=== PATIENT | female | born 1960 | race Caucasian/White ===

== ENCOUNTER 2017-07-12 00:28 | Inpatient (IN) | payer BC, OTHER ==
[2017-07-12] VITALS (7 sets, daily range): BP systolic 131–139; BP diastolic 75–85
[~2017-07-12] VITALS: Ht 167.6 cm; Wt 59.0 kg
[2017-07-12] MEDS ORDERED: MIRALAX 17 GM POWD.PACK PO PRN (01:15)
[2017-07-12] MEDS ORDERED: LOPERAMIDE HCL 2 MG CAPSULE PO PRN ×2 (01:15)
[2017-07-12] MEDS ORDERED: MAGNESIUM HYDROXIDE 30 ML LIQUID UDC PO PRN (01:15)
[2017-07-12] MEDS ORDERED: diphenhydrAMINE 50 MG CAPSULE PO PRN (01:15)
[2017-07-12] MEDS ORDERED: ONDANSETRON ODT 4 MG TAB.RAPDIS SL PRN (01:15)
[2017-07-12] MEDS ORDERED: LORAZEPAM 2 MG/1 ML VIAL IM PRN (01:15)
[2017-07-12] MEDS ORDERED: DICYCLOMINE HCL 20 MG TABLET PO PRN (01:15)
[2017-07-12] MEDS ORDERED: MAG HYDROX/AL HYDROX/SIMETH 30 ML LIQUID UDC PO PRN (01:15)
[2017-07-12] MEDS ORDERED: CLONIDINE HCL 0.1 MG TABLET PO PRN (01:15)
[2017-07-12] MEDS ORDERED: THIAMINE HCL 200 MG/2 ML VIAL IM ONE (01:15)
[2017-07-12] MEDS ORDERED: ONDANSETRON 4 MG/2 ML VIAL IM PRN (01:15)
[2017-07-12] MEDS ORDERED: HYDROXYZINE PAMOATE 25 MG CAPSULE PO PRN (01:15)
[2017-07-12] MEDS ORDERED: ACETAMINOPHEN 325 MG TABLET PO PRN (01:15)
[2017-07-12] MEDS ORDERED: LORAZEPAM 1 MG TABLET PO PRN (01:15)
--- NOTE | 2017-07-12 01:30 | NUR ---
Pre-admission assessment Patient is a 57-year old, female, seen at intake, AAOx4, no SOB and with flushed skin, anxiety and gross tremors noted at this time. Discussed with patient admission policies of the unit. Patient is coherent and able to respond to questions appropriately. Patient reported that she is from [place], [place]. Pt is ambulatory with steady gait. Pt reports that she drinks Tequila daily and takes Clonazepam as prescribed. Vital signs taken and as follows: YT=988/85, P=112, O2 sat on RA=96%, RR=20, T=98.4. Pt verbalized instructions and teachings regarding disposal of narcotic and other controlled home meds, unit protocols such as taking of vital signs Q4H and handling and disposal of contraband.
--- NOTE | 2017-07-12 01:55 | NUR ---
Admission Note Patient is a 57-year-old, female, arrived to the floor at 0145 to be admitted for medically supervised withdrawal from Alcohol (Tequila) and Benzodiazepines (Klonopin). The patient is currently experiencing withdrawal symptoms, as follows: flushed skin, increasing anxiety, emotional volatility and gross tremors. Pt appears disheveled, has a flat affect and with depressed mood. Pt is on a wheelchair due to unsteady gait related to withdrawal symptoms. Pt is AAOx4, and verbalized "I want to quit drinking. I want my life back and be at peace with myself." The patient states that withdrawal symptoms include tremors, agitation, anxiety, sweating, hot flushes, emotional volatility, goosebumps, nausea, vomiting and diarrhea. Patient denies a history of withdrawal-induced seizures. Patient verbalized that before she relapsed and started drinking again, she was sober for 1 month. Patient states current substance use as follows: 1. Tequila--Patient stated that she first had alcohol at age 15. For the past 1 month, patient verbalized drinking 750 ml of Tequila daily. Last drink was on 07/10/2017 at 2200, 750 ml of Tequila. 2.Clonazepam--Patient stated that she is taking 0.5 mg PO almost daily. Per patient, this medication is prescribed by her MD and only takes this medication as prescribed: 0.5 mg PO daily PRN Anxiety. She stated that she is seeking treatment today because "I was brought to the ER last 07/10/2017 because I did not feel good. I felt like my world was spinning and thought that I was gonna ." In addition, patient stated: "I realized that I am almost 60 and that if I don't change course, my life would be over before I know it." Her longest sobriety was 7 years, between 1995 to 2002. Patient admittedly said: "I want to have a job, a normal life and I want to make it right. My has been suffering for so long because of my alcohol problem. Sometimes, I doubt myself if I can do this. But I want to try and succeed this time." Patient verbalized that she is interested in going to a treatment center after her stay at [facility]. Patient's main support system is her . Vital signs are taken and as follows: BP: 139/82, HR: 105, RR: 18, SpO2: 96%, Temp: 98.1 and with no c/o pain. Pulse is palpable and regular. Respirations are even and unlabored. Lung sounds clear. Bowel sounds active x4 quadrants. Last bowel movement was in the morning of 07/11/2017. Per patient, her bowel movement is almost daily. Noted with non-pitting edema on the left foot, with no pain upon palpation. Pt follows a regular diet at home. NKA. Full Code. Height is 5'6", 130 lbs. She smokes approximately about a pack of [place] Smooth daily. Per patient, she has no primary care physician and Psychiatrist is Dr. Esqueda at [place], [place]. Pt states that her medical history are as follows: Anxiety, Depression and Left Arm and Left Hip Surgery due to fracture from a fall. Educated patient about plan of care including detox, group therapy, individual therapy, and discharge planning. Encouraged patient to be open and honest and verbalized support for patient in her recovery. Upon admission to the floor, CIWA=15. Will continue to monitor. Addendum: 07/12/17 at 0634 by REANNA FRASER RN Additional information: Patient brought home meds and they were reconciled at [employer].
[2017-07-12] MEDS ORDERED: LORAZEPAM 1 MG TABLET PO ONE (02:00)
[2017-07-12] MEDS ORDERED: GABA600T2 PO (02:13)
[2017-07-12] MEDS ORDERED: CLON0.5T4 PO (02:13)
[2017-07-12] MEDS ORDERED: PARO30TA4 PO (02:13)
[2017-07-12] MEDS ORDERED: QUET50TA PO (02:13)
[2017-07-12] MEDS ORDERED: NALT50TA PO (02:13)
[2017-07-12] MEDS ORDERED: HYDR50CA PO (02:13)
[2017-07-12 02:28] LABS: BASOPHILS # (AUTO) 0.1 K/uL (0.0-8.0); BASOPHILS % (AUTO) 1.3 % (0.0-2.0); EOSINOPHILS # (AUTO) 0.1 K/uL (0.0-0.7); EOSINOPHILS % (AUTO) 1.3 % (0.0-7.0); HEMATOCRIT 34.8 % (31.2-41.9); HEMOGLOBIN 12.1 g/dL (10.9-14.3); LYMPHOCYTES # (AUTO) 2.5 K/uL (20.0-40.0); MEAN CORPUSCULAR HEMOGLOBIN 38.7 uug (24.7-32.8); MEAN CORPUSCULAR HGB CONC 35 g/dL (32.3-35.6); MEAN CORPUSCULAR VOLUME 111.7 fL (75.5-95.3); MONOCYTES # (AUTO) 0.5 K/uL (2.0-10.0); MONOCYTES % (AUTO) 6.8 % (0.0-11.0); NEUTROPHILS # (AUTO) 3.8 K/uL (1.8-8.9); NEUTROPHILS % (AUTO) 54.6 % (38.5-71.5); PLATELET COUNT (AUTO) 124 K/uL (179-408); RED BLOOD CELL COUNT(AUTO) 3.11 MIL/uL (3.63-4.92)
[2017-07-12 02:35] LABS: ALANINE AMINOTRANSFERASE 50 U/L (14-59); ALKALINE PHOSPHATASE 115 U/L (50-136); AMYLASE 60 U/L (25-115); ASPARTATE AMINOTRANSFERASE 50 U/L (15-37); BILIRUBIN,TOTAL 0.8 mg/dL (0.2-1.0); CARBON DIOXIDE 37 mmol/L (21-32); CREATININE 0.5 mg/dL (0.6-1.3); GLUCOSE 78 mg/dL (74-106); LIPASE 262 U/L (73-393); MAGNESIUM 1.4 mg/dL (1.8-2.4); TOTAL PROTEIN, SERUM 7.3 g/dL (6.4-8.2); UREA NITROGEN, BLOOD 8 mg/dL (7-18)
[2017-07-12 02:39] LABS: ETHANOL < 3 MG/DL (0-0)
[2017-07-12 02:40] LABS: *AMPHETAMINE, URINE NEGATIVE (NEGATIVE); *BARBITURATE, URINE NEGATIVE (NEGATIVE); *CANNABINOID, URINE NEGATIVE (NEGATIVE); *COCCAINE, URINE NEGATIVE (NEGATIVE); *OPIATE, URINE NEGATIVE (NEGATIVE); *PHENCYCLIDINE SCREEN,URINE NEGATIVE (NEGATIVE)
[2017-07-12 02:45] LABS: CHLORIDE 95 mmol/L (98-107)
[2017-07-12] MEDS ORDERED: QUETIAPINE FUMARATE 25 MG TABLET PO ONE (02:45)
[2017-07-12 02:46] LABS: THYROID STIMULATING HORMONE 4.792 mIU/mL (0.358-3.740)
[2017-07-12 03:31] LABS: POTASSIUM 2.7 mmol/L (3.5-5.1)
[2017-07-12] MEDS ORDERED: POTASSIUM CHLORIDE 20 MEQ TAB.PRT.SR PO ONE ×2 (03:45→15:00)
[2017-07-12] MEDS ORDERED: MAGNESIUM OXIDE 400 MG TABLET PO ONE ×2 (04:15→15:00)
--- NOTE | 2017-07-12 07:20 | NUR ---
End of Shift Patient asleep on bed but arousable, AAOx4 and noted to be increasingly anxious. With flushed skin and tremors noted. Patient appears depressed, melancholic and isolative. Patient also noted to be disheveled. Patient has difficulty in concentrating, lanie in conversations lasting over 3 minutes. Patient verbalized: "I want to get some more rest. I feel really tired." No c/o pain at this time. Fall, universal, seizure and safety prec in place. Call light within reach. Latest CIWA=9, slept for 2 hours. Endorsed to AM shift nurse for continuity of care.
--- NOTE | 2017-07-12 07:21 | NUR ---
Start of Shift Single Fold Machine Operator received report on 57 Year old female admitted to [facility] on 07/12/17, early am, for medical management of ETOH and Benzodiazepine withdrawals. Pt endorses NKA, Full code and regular diet. Pt endorses no PMH and no history of seizures. PPH of anxiety and depression. Pt currently on 1:1 staffing for safety d/t unsteady gait. Pt with no PRN medication on NOC, per report. Pt has not been started on taper with pt receiving OT doses of Ativan and Seroquel. Last CIWA 9, per NOC report. Single Fold Machine Operator encounters pt in room resting with eyes closed with rise and f all of chest noted. Even and unlabored respirations. Bed in low position with wheels locked and side rails up x2. Will continue to monitor, support and encourage according to plan of care.
[2017-07-12] MEDS: FOLIC ACID 1 MG TABLET PO SCH (09:44)
[2017-07-12] MEDS: THIAMINE HCL 100 MG TABLET PO SCH (09:44)
[2017-07-12] MEDS: MULTIVITAMINS,THERAPEUTIC TABLET PO SCH (09:44)
[2017-07-12] MEDS: LORAZEPAM 1 MG TABLET PO PRN (09:44)
--- NOTE | 2017-07-12 09:44 | NUR ---
PRN Ativan Pt's CIWA 10. Mud Grinder administered medication to order with pt tolerating well. Will continue to monitor, support and encourage according to plan of care
[2017-07-12] MEDS ORDERED: Medication Not On Formulary EA (Quetiapine Fumarate (Seroquel) 50 MG) PO PRN (09:45)
--- NOTE | 2017-07-12 10:44 | NUR ---
PRN Re-Assessment Entry Rep resting in bed with eyes closed, rise and fall of chest noted, with even and unlabored respirations. Will continue to monitor, support and encourage according to plan of care.
[2017-07-12] MEDS: LORAZEPAM 1 MG TABLET PO SCH ×2 (15:44→20:25)
--- NOTE | 2017-07-12 16:50 | NUR ---
Desaturation Pt's O2 levels drop to 86% while pt sleeps. Chuck Boner notified MD and received order for NC O2 and titrate to keep O2 >95%. NC provided and placed on pt. Chuck Boner educated pt on need for oxygen. Will continue to monitor, support and encourage according to plan of care.
--- NOTE | 2017-07-12 16:55 | NUR ---
DVT Prophylaxes Flight Coordinator educated pt on need for Pneumatic Pump for DVT prevention and proper application. Pump and pneumatic stockings in room. Will continue to monitor, support and encourage according to plan of care.
--- NOTE | 2017-07-12 19:02 | NUR ---
End of Shift Playground Monitor provided report on 57 Year old female admitted to [facility] on 07/12/17 for medical management of ETOH and Benzodiazepine withdrawals. Pt endorses NKA, Full code and regular diet. Pt endorses no PMH and no history of seizures. PPH of anxiety and depression. Pt currently on 1:1 staffing for safety d/t unsteady gait, pending PT evaluation. Pt administered Ativan(withdrawal symptoms) for a CIWA of 10. Pt started on Ativan taper today, tolerating well with last CIWA 10 recorded at 1630. Pt has been resting all shift, in her room with 1:1 attendant. Pt is tremulous, anxious and restless. Cooperative and polite. A/O x4 and able to make needs known. Bed in low position with wheels locked and side rails up x2.
--- NOTE | 2017-07-12 19:45 | NUR ---
Start of Shift Note Received a 57 y/o female px, admitted for medically supervised withdrawal from ETOH and Benzodiazepine. Px is placed on 4 day Ativan taper starts today, 07/12/2017. Last CIWA reported is 10 by AM shift nurse. Px was placed on 1 to 1 for unsteady gait and safety. During the rounds at 1945, px is awake on bed in fowlers position. VS taken. Px is tachycardic with regular pulse. O2sat is saturating in 90% to 95% in RA. Px may use O2 inhalation at 2 LPM via NC as needed. Px stated "can I have something for heartburn?" Px's anxiety is 7/10. Bilateral hand tremors noted. Px requested for her Seroquel later before she sleeps. Px is placed on IPC for bilateral legs. Bed on lowest position, side rails up 2x, and call light within reach. We'll continue to monitor.
[2017-07-12] MEDS: GABAPENTIN 300 MG CAPSULE PO SCH (20:25)
[2017-07-12] MEDS: PAROXETINE HCL 20 MG TABLET PO SCH (20:25)
--- NOTE | 2017-07-12 20:46 | NUR ---
PRN Maalox Px was given Maalox 30 ml as PRN medication for heart burn. We'll continue to monitor.
[2017-07-12] MEDS: QUETIAPINE FUMARATE 25 MG TABLET PO PRN (21:44)
--- NOTE | 2017-07-12 21:44 | NUR ---
PRN Seroquel Px received Seroquel 25 mg/tab, 2 tabs PO as PRN medication for insomnia. We'll continue to monitor.
[2017-07-13] VITALS: BP 122/71
--- NOTE | 2017-07-13 04:00 | NUR ---
CIWA deferred CIWA deferred at 0000 and 0400 due to the px is asleep, to assess if the px is awake per doctor's order. We'll continue to monitor.
--- NOTE | 2017-07-13 07:12 | NUR ---
End of Shift Note During the shift at 2045, Maalox 30 ml given PO as PRN medication for heartburn and it was effective. At 2143, px received Seroquel 50 mg PO as PRN medication for insomnia. It was effective. Px slept for total of 8 hours. Px's oral intake is 350 ml, voided 2x, No BM. Last CIWA 9. At 0630, px is asleep on bed in left side lying position. Px is on O2 inhalation at 2 LPM via NC. O2sat= 96%. Bed on lowest position, side rails up 2x, and call light within reach. We'll continue to monitor. Px endorsed to AM shift nurse.
--- NOTE | 2017-07-13 07:30 | NUR ---
Start of Shift Building Construction Foreman received report on 57 Year old female admitted to [facility] on 07/12/17, for medical management of ETOH and Benzodiazepine withdrawals. Pt endorses NKA, Full code and regular diet. Pt endorses no PMH and no history of seizures. PPH of anxiety and depression. Pt currently on 1:1 staffing for safety d/t unsteady gait, with PT Evaluation ordered. Pt administered Maalox(upset stomach) and Seroquel(insomnia) PRN, per report. Pt has started an Ativan taper with last CIWA 9, per NOC report. Building Construction Foreman encounters pt in room resting with eyes closed with rise and fall of chest noted. Even and unlabored respirations. Bed in low position with wheels locked and side rails up x2. Will continue to monitor, support and encourage according to plan of care.
[2017-07-13 08:07] LABS: HEPATITIS B SURFACE AG Negative (Negative)
[2017-07-13 08:30] VITALS: BP 132/78
[2017-07-13] MEDS ORDERED: TUBERCULIN,PURIF.PROT.DERIV. 5 TU/0.1 ML TEST ID ONE (09:00)
[2017-07-13] MEDS ORDERED: LORAZEPAM 1 MG TABLET PO SCH ×2 (09:00→21:00)
[2017-07-13] MEDS ORDERED: PAROXETINE HCL 20 MG TABLET PO SCH (09:00)
[2017-07-13] MEDS: FOLIC ACID 1 MG TABLET PO SCH (09:05)
[2017-07-13] MEDS: THIAMINE HCL 100 MG TABLET PO SCH (09:06)
[2017-07-13] MEDS: GABAPENTIN 300 MG CAPSULE PO SCH ×2 (09:06→20:30)
[2017-07-13] MEDS: MULTIVITAMINS,THERAPEUTIC TABLET PO SCH (09:06)
[2017-07-13 12:30] VITALS: BP 141/82
[2017-07-13] MEDS: LORAZEPAM 1 MG TABLET PO SCH ×2 (13:26→17:45)
[2017-07-13 13:47] LABS: BASOPHILS % (AUTO) 0.9 % (0.0-2.0); EOSINOPHILS # (AUTO) 0.1 K/uL (0.0-0.7); HEMATOCRIT 36.1 % (31.2-41.9); HEMOGLOBIN 12.4 g/dL (10.9-14.3); LYMPHOCYTES # (AUTO) 1.6 K/uL (20.0-40.0); LYMPHOCYTES % (AUTO) 37.8 % (20.5-51.5); MEAN CORPUSCULAR HEMOGLOBIN 38.7 uug (24.7-32.8); MEAN CORPUSCULAR HGB CONC 34 g/dL (32.3-35.6); MEAN CORPUSCULAR VOLUME 112.4 fL (75.5-95.3); MONOCYTES # (AUTO) 0.3 K/uL (2.0-10.0); MONOCYTES % (AUTO) 7.8 % (0.0-11.0); NEUTROPHILS # (AUTO) 2.2 K/uL (1.8-8.9); NEUTROPHILS % (AUTO) 51.5 % (38.5-71.5); PLATELET COUNT (AUTO) 120 K/uL (179-408); RED BLOOD CELL COUNT(AUTO) 3.21 MIL/uL (3.63-4.92); WHITE BLOOD COUNT (AUTO) 4.3 K/uL (3.8-11.8)
[2017-07-13 14:13] LABS: BILIRUBIN,DIRECT 0.2 mg/dL (0.0-0.2); BILIRUBIN,TOTAL 0.5 mg/dL (0.2-1.0); CREATININE 0.6 mg/dL (0.6-1.3); MAGNESIUM 1.8 mg/dL (1.8-2.4); PHOSPHOROUS 4.4 mg/dL (2.5-4.9); POTASSIUM 3.3 mmol/L (3.5-5.1); TOTAL PROTEIN, SERUM 6.8 g/dL (6.4-8.2)
--- NOTE | 2017-07-13 15:35 | NUR ---
Transfer of Care Child Psychometrist endorsed care of 57 Year old female admitted to [facility] on 07/12/17, for medical management of ETOH and Benzodiazepine withdrawals. Pt endorses NKA, Full code and regular diet. Pt endorses no PMH and no history of seizures. PPH of anxiety and depression. Pt currently on 1:1 staffing for safety d/t unsteady gait, PT recommended Walker for ambulation with standby assist and wheelchair use for the patio, per nursing discretion. Pt not administered any PRN medication. Pt currently on an Ativan taper with last CIWA 9 at 1230. Pt has been somnolent and lethargic, resting most of the shift. Evaluated by PT. Tremulous and anxious with perspiration obvious. Calm and cooperative, polite, but slow to respond with a blunted affect. Bed in low position with wheels locked and side rails up x2.
--- NOTE | 2017-07-13 15:49 | NUR ---
ASSUMED CARE OF PT. 1:1 SITTER AT BEDSIDE. SHE IS LAYING IN BED SNORING. RESPIRATIONS EVEN AND UNLABORED.BED LOCKED AND LOW.WILL CONTINUE TO MONITOR.
[2017-07-13 16:00] VITALS: BP 138/72
--- NOTE | 2017-07-13 19:03 | NUR ---
END OF SHIFT: ASSUMED CARE LATE IN AFTERNOON. PT HAS BEEN SLEEPING ON AND OFF. WHEN 1700 MEDS GIVEN PT WAS TREMULOUS WITH A SHAKY VOICE. SHE STATES SHE FEELS ANXIOUS AND FATIGUED AT THE SAME TIME. LAST CIWA 10. PT CONTINUES ON 1:1 FOR SAFETY. WILL PASS SHIFT REPORT TO ONCOMING NIGHT NURSE.
--- NOTE | 2017-07-13 19:30 | NUR ---
START OF SHIFT Pt is a 57 y/o female admitted on 07/12/17 for ETOH and benzo withdrawal. Pt is on a 4 day Ativan taper, tolerating well. Pt is on a 1:1 for unsteady gait. Pt uses a walker or wheelchair for ambulation assistance d/t left hip fracture hx. Last CIWA 10 and no PRNs administered during day shift. Upon assessment pt presents with anxiety, restlessness, night sweats, tremors, flushed skin, difficulty falling and staying asleep, increased HR, unkempt room, anhedonia and dysphoria. Medications due. Safety measures in place. 1:1 sitter at bedside. Will continue to monitor.
[2017-07-13 20:00] VITALS: BP 131/76
[2017-07-13] MEDS: PAROXETINE HCL 20 MG TABLET PO SCH (20:30)
[2017-07-13] MEDS: QUETIAPINE FUMARATE 25 MG TABLET PO PRN (22:15)
--- NOTE | 2017-07-13 22:15 | NUR ---
PRN SEROQUEL ADMINISTRATION Pt requests sleep aid. Safety measures in place. Call light within reach. Will continue to monitor.
--- NOTE | 2017-07-13 23:15 | NUR ---
PRN SEROQUEL REASSESSMENT Pt laying in bed with eyes closed, medication noted effective. Respirations even and unlabored. Safety measures in place. Call light within reach. Will continue to monitor.
[2017-07-14] VITALS (7 sets, daily range): BP systolic 96–140; BP diastolic 64–99
--- NOTE | 2017-07-14 | NUR ---
CIWA DEFERRED Pt laying in bed with eyes closed, CIWA deferred, to be assessed when pt is awake per orders. Respirations even and unlabored. Safety measures in place. Call light within reach. Will continue to monitor.
--- NOTE | 2017-07-14 07:02 | NUR ---
END OF SHIFT Pt is a 57 y/o female admitted on 07/12/17 for ETOH and benzo withdrawal. Pt is on a 4 day Ativan taper, tolerating well. Pt is on a 1:1 for unsteady gait. Pt used a walker or wheelchair for ambulation assistance. Last Pt presented with anxiety, restlessness, night sweats, tremors, flushed skin, difficulty falling and staying asleep, increased HR, unkempt room, anhedonia and dysphoria. Scheduled medications and PRN Seroquel administered, effective in S/S of withdrawal as verbalized by pt. Last CIWA 11. Pt slept 7 hours. Intake 1065 ml, void x 5, stool x 0. Safety measures in place. Call light within reach. Pts needs have been met. Endorsed to day shift nurse.
--- NOTE | 2017-07-14 07:21 | NUR ---
BEGINNING OF SHIFT Patient endorsement report received from night cleaner nurse, all pertinent information discussed. Patient is a 57 year old female with admitting Dx: etoh/bzo withdrawal. Patient is Currently under close observation, Patient with ongoing 4 day Ativan taper as ordered, taper began on 07/12/2017. patient scheduled to begin day 3 of taper, will monitor closely during shift. will monitor s/sx of withdrawal closely. Patient continues with 1: 1 sitter for safety precautions due to unsteady gait, related to s/p hip fracture d/t fall. Patient able to ambulate with assistive device, walker. fall and seizure precautions in place and observed at all times. patient slept for 7 hours. Patient with last ciwa score of: 11. Patient received awake, alert and oriented x4, will educated regarding plan of care for the day, and medication regimen. Patient received PRN: Seroquel during night cleaner. will continue to monitor closely. safety measures in place.
[2017-07-14] MEDS: GABAPENTIN 300 MG CAPSULE PO SCH ×2 (08:24→20:44)
[2017-07-14] MEDS: THIAMINE HCL 100 MG TABLET PO SCH (08:24)
[2017-07-14] MEDS: MULTIVITAMINS,THERAPEUTIC TABLET PO SCH (08:24)
[2017-07-14] MEDS: FOLIC ACID 1 MG TABLET PO SCH (08:24)
[2017-07-14] MEDS ORDERED: LORAZEPAM 1 MG TABLET PO SCH ×3 (09:00→21:00)
--- NOTE | 2017-07-14 10:36 | NUR ---
Client was prompted to attend group sessions. Client agreed to attend.
[2017-07-14] MEDS ORDERED: hydrALAZINE HCL 50 MG TABLET PO PRN (12:45)
[2017-07-14] MEDS ORDERED: POTASSIUM CHLORIDE 20 MEQ TAB.PRT.SR PO ONE (13:00)
[2017-07-14] MEDS: LORAZEPAM 1 MG TABLET PO PRN (17:32)
--- NOTE | 2017-07-14 17:32 | NUR ---
PRN ATIVAN Patient reports increase anxiety, noted with elevated heart rate: of 105. current ciwa score of 10, presenting with anxiety, tremors, and agitation. administered Ativan 1 mg PO as ordered for ciwa score of 10. will monitor effectiveness of medication.
--- NOTE | 2017-07-14 18:32 | NUR ---
ATIVAN REASSESSMENT Medication effective, patient with decrease in anxiety, current ciwa score of: 8, and decrease in elevated heart rate, current hr: 98. Medication effective. will continue to monitor.
--- NOTE | 2017-07-14 19:10 | NUR ---
END OF SHIFT Patient alert and oriented x4, monitored closely during shift. Patient has a worried, and anxious facial expression. At times noted with increase anxiety and agitation. Provided with non pharmacological interventions as needed. Encouraged patient to attend group therapies/sessions to learn new coping skills to prevent relapse. Patient continues on a 1:1 sitter for safety precautions, able to ambulate with walker. Patient continues on a Ativan taper as ordered, Patient presented with: tremors, anxiety, agitation, barely sweating, initial ciwa score of: 11, last ciwa score of: 8. Patient received PRN: Ativan as ordered. Patient encouraged participation in therapy sessions, patient denies any SI/HI, Patient was encouraged to verbalize feelings, encouraged to develop coping skills and utilization of non pharmacological interventions.Encouraged patient to increase PO fluid intake as tolerated. Patients safety measures are in place. call light kept within reach, will continue to monitor. Endorsed to shift supervisor nurse, all pertinent information discussed.
--- NOTE | 2017-07-14 20:00 | NUR ---
Start of Shift Note Received a 57 y/o female px, admitted for medically supervised withdrawal from ETOH and Benzodiazepine. Px is placed on 4 day Ativan taper started on 07/12/2017. Last CIWA reported is 8 by AM shift nurse. Px is still on 1 to 1 for unsteady gait and safety. During the rounds at 1999, px is awake sitting on the edge of the bed. VS taken. Px is tachycardic with regular pulse. BP= 132/84. O2sat is saturating in 98% in RA. Px may use O2 inhalation at 2 LPM via NC as needed when asleep. Px appears drowsy. Room is odorous. Px stated "I want to have my Seroquel later." Px's anxiety is 7/10. Bilateral hand tremors noted. Px is on IPC for bilateral legs. Bed on lowest position, side rails up 2x, and call light within reach. We'll continue to monitor.
[2017-07-14] MEDS: PAROXETINE HCL 20 MG TABLET PO SCH (20:43)
[2017-07-14] MEDS: PROPRANOLOL HCL 20 MG TABLET PO SCH (20:45)
[2017-07-14] MEDS: QUETIAPINE FUMARATE 25 MG TABLET PO PRN (21:24)
--- NOTE | 2017-07-14 21:24 | NUR ---
PRN Seroquel Px received Seroquel 25 mg/tab, 2 tabs PO as PRN medication for insomnia. We'll continue to monitor.
[2017-07-15] VITALS: BP 90/50
[2017-07-15 04:00] VITALS: BP 90/65
[2017-07-15] MEDS: IBUPROFEN 400 MG TABLET PO PRN (06:20)
--- NOTE | 2017-07-15 06:20 | NUR ---
PRN Motrin Px complained of bilateral leg pain 10/14. Px received Motrin 400 mg/tab, 1 tab PO as PRN medication. We'll continue to monitor.
--- NOTE | 2017-07-15 07:15 | NUR ---
End of Shift Note During the shift at 2123, px received Seroquel 50 mg PO as PRN medication for insomnia. It was effective. At 0620, Px complained of bilateral leg pain 8/10, px was given Motrin 400 mg PO as PRN med. To reassess. Px was encouraged to walk with a walker as tolerated and drink 2- 3 L of water a day or as tolerated. Px slept for total of 7 hours. Pxs oral intake is 750 ml, voided 4x, No BM. At 0630, px is awake on bed in fowlers position. Last CIWA 8. Bed on lowest position, side rails up 2x, and call light within reach. We'll continue to monitor. Px is endorsed to AM shift nurse.
--- NOTE | 2017-07-15 07:29 | NUR ---
BEGINNING OF SHIFT Patient endorsement report received from night order selector nurse, all pertinent information discussed. Patient is a 57 year old female with admitting Dx: etoh/bzo withdrawal. Patient is Currently under close observation, Patient with ongoing 4 day Ativan taper as ordered, taper began on 07/12/2017. patient scheduled to begin day 4 of taper, will monitor closely during shift. will monitor s/sx of withdrawal closely. Patient continues with 1: 1 sitter for safety precautions due to unsteady gait, related to s/p hip fracture d/t fall. Patient able to ambulate with assistive device, walker, per night order selector patient is requesting to ambulate without walker but holding on the rails on the wall, patient was educated by night order selector nurse and current nurse regarding all safety precautions, and need to use assistive device, walker until further MD orders. Dr. saenz will be notified, of patients request. fall and seizure precautions in place and observed at all times. patient slept for 7 hours. Patient with last ciwa score of: 8. Patient received awake, alert and oriented x4, will educated regarding plan of care for the day, and medication regimen. Patient received PRN: Seroquel and Motrin during night order selector. will continue to monitor closely. safety measures in place.
[2017-07-15 08:13] VITALS: BP 125/75
[2017-07-15] MEDS: GABAPENTIN 300 MG CAPSULE PO SCH ×2 (08:16→20:40)
[2017-07-15] MEDS: MULTIVITAMINS,THERAPEUTIC TABLET PO SCH (08:16)
[2017-07-15] MEDS: FOLIC ACID 1 MG TABLET PO SCH (08:16)
[2017-07-15] MEDS: LORAZEPAM 1 MG TABLET PO SCH ×3 (08:16→20:41)
[2017-07-15] MEDS: THIAMINE HCL 100 MG TABLET PO SCH (08:17)
[2017-07-15] MEDS: PROPRANOLOL HCL 20 MG TABLET PO SCH ×2 (08:17→20:41)
[2017-07-15] MEDS ORDERED: LORAZEPAM 1 MG TABLET PO SCH (09:00)
--- NOTE | 2017-07-15 10:52 | NUR ---
PT YVETTE Patient was seen by PT during shift to evaluate gait and patients request to ambulate by her self. Per PT, patient to continue using wheelchair for long distance. OK for patient to ambulate with close supervision of sitter at all times, short distance only. Safety measures are in place. call light kept with in reach, will continue to monitor.
[2017-07-15 13:45] VITALS: BP 100/69
[2017-07-15 17:00] VITALS: BP 102/75
[2017-07-15] MEDS: HYDROXYZINE PAMOATE 25 MG CAPSULE PO PRN (18:13)
--- NOTE | 2017-07-15 18:13 | NUR ---
PRN VISTARIL Patient reports increase in anxiety, provided with non pharmacological interventions with no relief, administered Vistaril as ordered, will endorse to corporate affairs manager nurse to follow up on effectiveness of medication.
--- NOTE | 2017-07-15 19:04 | NUR ---
START OF SHIFT NOTE Endorsed patient admitted on 07/12/2017 for Benzodiazepines/Klonopin, and ETOH/"Tequila" safety withdrawal under medical supervision. The patient continues 4 Day Ativan Taper since 07/12/2017 with tolerated well. Patient is alert and orientedx4, is on 1:1 Sister at bedside for unsteady gate. Patient appears worry with anxious mood. The most recent CIWA= 8 at 1643. The patient presented with anxiety, agitation, nervousness, tremors, restless legs, and fatigue. Upon initial assessment respirations unlabored and even. Patient denies SOB and chest pain. Lungs Sounds are clear bilaterally. Bowel Sounds active in all x4 quadrants. Abdomen is soft and non-tender. PERRLA, brisk capillary refill, washer and crusher tender equal and strong. Skin is intact, warm, and dry to touch. PRN Vistaril 25 mg PO administrated at 1813 by day shift nurse for anxiety as ordered. Encouraged fluids as tolerated. Encouraged to attend activities groups. All needs met. Safety measures on place. Call light within reach, bed in lowest position locked, padded rails up bilaterally. Will continue to monitor closely.
--- NOTE | 2017-07-15 19:04 | NUR ---
END OF SHIFT Patient alert and oriented x4, monitored closely during shift. Patient has a worried, and anxious facial expression. At times noted with increase anxiety and agitation. Provided with non pharmacological interventions as needed. Encouraged patient to attend group therapies/sessions to learn new coping skills to prevent relapse. Patient continues on a 1:1 sitter for safety precautions, able to ambulate with close supervision, short distance, as per PT eval done today. Received PRN: Vistaril during shift, endorsed to night supervisor nurse to f/u on effectiveness of medication. Patient continues on a Ativan taper as ordered, Patient presented with: tremors, anxiety, agitation, barely sweating, initial ciwa score of:8, last ciwa score of: 8. Patient encouraged participation in therapy sessions, patient denies any SI/HI, Patient was encouraged to verbalize feelings, encouraged to develop coping skills and utilization of non pharmacological interventions.Encouraged patient to increase PO fluid intake as tolerated. Patients safety measures are in place. call light kept within reach, will continue to monitor. Endorsed to night supervisor nurse, all pertinent information discussed.
--- NOTE | 2017-07-15 19:13 | NUR ---
RE-ASSESSMENT Patient reports decreased anxiety. PRN Vistaril 25 mg 1 capsule PO administrated at 1813 by day shift nurse was effective. All needs met. Safety measures on place. Call light within reach, bed in lowest position and locked, padded rails up bilaterally. Will continue to monitor closely.
[2017-07-15 20:00] VITALS: BP 117/73
[2017-07-15] MEDS: PAROXETINE HCL 20 MG TABLET PO SCH (20:42)
[2017-07-15] MEDS: QUETIAPINE FUMARATE 25 MG TABLET PO PRN (22:15)
--- NOTE | 2017-07-15 22:15 | NUR ---
PRN SEROQUEL 25 MG/TABLET, 2 TABLETS PO ADMINISTRATION Patient c/o insomnia and asked aid. PRN Seroquel 50 mg PO administrated as ordered with full glass of water. Patient tolerated well. All needs met. 1:1 sitter at bedside for unsteady gait. Safety measures in place: Call light within reach, bed is locked in lowest position, padded bed rails up bilaterally. Will continue to monitor closely.
--- NOTE | 2017-07-15 23:15 | NUR ---
RE-ASSESSMENT Patient is sleeping. RR 16. Respirations are even and unlabored. PRN Seroquel 50 mg PO administrated as ordered for insomnia at 2215 as ordered was effective. All needs met. 1:1 sitter at bedside for unsteady gait. Safety measures in place: Call light within reach, bed is locked in lowest position, padded bed rails up bilaterally. Will continue to monitor closely.
[2017-07-16] VITALS (7 sets, daily range): BP systolic 99–148; BP diastolic 56–88
--- NOTE | 2017-07-16 04:00 | NUR ---
VS REFUSED, CIWA DEFERRED VS refused, CIWA deferred at 0400 due to patient sleeping; to be assessed and scored while patient is awake. Patient's respirations are even and unlabored. RR:15. All needs met. Safety measures in place: Call light within reach, bed locked in low position, padded side rails up x2. Will continue to monitor closely.
[2017-07-16] MEDS: IBUPROFEN 400 MG TABLET PO PRN ×2 (05:57→22:14)
--- NOTE | 2017-07-16 05:57 | NUR ---
PRN MOTRIN 400 MG 1 TABLET PO ADMINISTRATION. PRN Motrin 400 mg PO administrated for bilateral legs pain "7/10" with full glass of water as ordered. Patient tolerated well. 1:1 sitter at bedside for unsteady gate. All needs met. Safety measures on place. Call light within reach, bed in lowest position locked, padded rails up bilaterally. Will continue to monitor closely.
--- NOTE | 2017-07-16 06:57 | NUR ---
RE-ASSESSMENT Patient is sleeping. RR 16. Respirations even and unlabored. PRN Motrin 50 mg PO administrated for bilateral legs pain "09/13" at 0557 as ordered was effective. 1:1 sitter for unsteady gait at bedside. All needs met. Safety measures on place. Call light within reach, bed in lowest position locked, padded rails up bilaterally. Will continue to monitor closely.
--- NOTE | 2017-07-16 07:11 | NUR ---
END OF SHIFT NOTE: A 57 year old female is presented for Benzodiazepines/Klonopin and Alcohol/Tequila withdrawal, continues 4 day Ativan taper. Patient tolerated well. She is alert and orientedx4. The patient is cooperative. Speech is soft and clear. Patient denies allergy, is on Full Code, Regular diet, is on Fall and Seizures precautions. Patient denies seizures history. 1:1 sitter at bedside for unsteady gait. The patient appears anxious, agitated, sad, worry, fearful with irritability. Her mood and affect are depressed and anxious. Patient noted unkempt and uncombed. Educated in safety and hygiene care. Encouraged to independently perform hygiene care. Initial CIWA=12 @2000, CIWA=9 @0000. The most recent CIWA=11 at 0555. During my shift patient presented with anxiety, agitation, nervousness, restlessness, tremors, fatigue, abdominal cramps, body aches, sweating, and insomnia. PRN Seroquel 50 mg PO administrated for insomnia at 2215, PRN Motrin 400 mg PO administrated for leg pain "7/10" at 0557 were effective. Patient remains compliant with treatment, medications, and diet regime. Calm and safety environment with minimized noises was provided. Patient slept 9 hours, intake 1,710 ml, voided x4. All needs met. Safety measures in the place: Call light within reach, bed in the lowest position and locked, padded rails up x2. Patient endorsed to day shift nurse.
--- NOTE | 2017-07-16 07:35 | NUR ---
BEGINNING OF SHIFT Patient endorsement report received from security shift supervisor nurse, all pertinent information discussed. Patient is a 57 year old female with admitting Dx: etoh/bzo withdrawal. Patient is Currently under close observation, Patient with ongoing 4 day Ativan taper as ordered, taper began on 07/12/2017. will monitor closely during shift. will monitor s/sx of withdrawal closely. Patient continues with 1: 1 sitter for safety precautions due to unsteady gait, related to s/p hip fracture d/t fall. fall and seizure precautions in place and observed at all times. patient slept for 9 hours. Patient with last ciwa score of: 11. Patient received awake, alert and oriented x4, will educated regarding plan of care for the day, and medication regimen. Patient received PRN: Seroquel and Motrin during security shift supervisor. will continue to monitor closely. safety measures in place.
[2017-07-16] MEDS: MULTIVITAMINS,THERAPEUTIC TABLET PO SCH (08:49)
[2017-07-16] MEDS: THIAMINE HCL 100 MG TABLET PO SCH (08:50)
[2017-07-16] MEDS: FOLIC ACID 1 MG TABLET PO SCH (08:50)
[2017-07-16] MEDS: GABAPENTIN 300 MG CAPSULE PO SCH ×3 (08:50→20:33)
[2017-07-16] MEDS: PROPRANOLOL HCL 20 MG TABLET PO SCH ×2 (08:51→20:33)
[2017-07-16] MEDS ORDERED: LORAZEPAM 1 MG TABLET PO SCH (09:00)
[2017-07-16] MEDS ORDERED: LORAZEPAM 1 MG TABLET PO ONE (12:30)
[2017-07-16] MEDS: HYDROXYZINE PAMOATE 25 MG CAPSULE PO PRN ×2 (14:19→21:05)
--- NOTE | 2017-07-16 14:19 | NUR ---
ONE TIME ATIVAN Per Dr. Fernandez orders patient received one time dose of ativan 1 mg Po as ordered, patient presented with: tremors, anxiety, and agitation. with ciwa score of: 8. Safety measures are in palce. call light kept with in reach. will continue to monitor.
--- NOTE | 2017-07-16 14:19 | NUR ---
KAYLYN VISTARIL Patient presented with increase anxiety, per patient anxious about treatment center she will be going to when she discharges, patient reports she is motivated towards her sobriety, but feels anxious in regards to it. provided patient with calming reassurance, and administered Vistaril 25mg PO as ordered for anxiety, will monitor effectiveness of medication.
--- NOTE | 2017-07-16 15:19 | NUR ---
VISTARIL REASSESSMENT Patient reports medication effective, feels less anxious and more calm. safety measures in place. will continue to monitor.
[2017-07-16] MEDS ORDERED: IBUP-1953 PO (15:30)
[2017-07-16] MEDS ORDERED: HYDR-3895 PO (15:30)
[2017-07-16] MEDS ORDERED: PROP20TA19 PO (15:30)
[2017-07-16] MEDS ORDERED: GABA-534 PO (15:30)
[2017-07-16] MEDS ORDERED: PARO20TA7 PO (15:30)
--- NOTE | 2017-07-16 15:51 | NUR ---
ENDORSED CARE Endorsed patient to staff nurse, all pertinent information was discussed. Patient was monitored closely, continues on Ativan, taper, but received last dose of Ativan today. Patient is scheduled to be discharged tomorrow, and is self motivated towards sobriety. During shift patient presented with fine tremors, anxiety and agitation. Initial ciwa score of: 9. Continues with 1: 1 sitter for safety precautions. Fall and seizure precautions were observed and in place at all times. Patient received PRN: Vistaril during shift. As per Dr. Fernandez orders patient received a one time dose of Ativan 1mg PO at 1419, well tolerated. Patient encouraged participation in therapy sessions, patient denies any SI/HI, Patient was encouraged to verbalize feelings, encouraged to develop coping skills and utilization of non pharmacological interventions.Encouraged patient to increase PO fluid intake as tolerated. Patients safety measures are in place. call light kept within reach, will continue to monitor. Endorsed to staff nurse.
--- NOTE | 2017-07-16 15:52 | NUR ---
Endorsed received Patient 57 y/o female admitted for medically supervised withdrawal of ETOH and Klonopin. Patient alert & oriented to name, place & situation. Presents with depressed mood, flat affect. Denies c/o N/V/D. Pt presents with fine tremors, anxiety and agitation. Pt completed Ativan taper today. Pt for discharge tomorrow. Continues with 1: 1 sitter for safety precautions. Ambulates with unsteady gait. At 1200 last CIWA 9. Patient received PRN: Vistaril during shift. Fall and seizure precautions observed. Bed in lowest/locked position, side rails up X2, call light within reach. Will continue to monitor for withdrawal symptoms.
--- NOTE | 2017-07-16 18:34 | NUR ---
End of shift Patient 57 y/o female admitted for medically supervised withdrawal of ETOH and Klonopin. Patient alert & oriented to name, place & situation. Presents with depressed mood, flat affect. Denies c/o N/V/D. Pt presents with fine tremors, anxiety and agitation. Pt completed Ativan taper today. Pt for discharge tomorrow. Continues with 1: 1 sitter for safety precautions. Ambulates with unsteady gait. At 1600 last CIWA 8. PRN medications given today- Vistaril. Patient remained compliant with medication regimen. Encourage pt to attend group therapy to learn/develop coping skills to prevent relapse. Pt NKA, FULL CODE. Adequate PO fluids 1420 ml, voids X 4, BM X 1. Fall and seizure precautions observed. Bed in lowest/locked position, side rails up X2, call light within reach. Will continue to monitor for withdrawal symptoms. Endorsed to PM shift.
--- NOTE | 2017-07-16 19:20 | NUR ---
START OF SHIFT Patient is a 57-year-old female admitted on 07/12/17 for ETOH (tequila) withdrawal. Patient has completed a 4-day Ativan taper, tolerated well. Patient's last CIWA was 8 per day shift. Patient is scheduled for discharge tomorrow. Patient received PRN Vistaril this morning and a one-time dose of Ativan, noted as effective. Upon assessment, patient appears anxious and fine tremors are noted. Patient complains of anxiety related to discharge and the day's events. Patient is on fall and seizure precautions with no history of seizure. Patient is currently on 1:1 with sitter in her room for safety related to unsteady gait. Per PT evaluation, patient can walk short distances with supervision but requires a wheelchair for farther distances. Safety measures in place, side rails up x2, bed locked in low position, call light within reach. Will continue to monitor.
[2017-07-16] MEDS: PAROXETINE HCL 20 MG TABLET PO SCH (20:33)
[2017-07-16] MEDS: QUETIAPINE FUMARATE 25 MG TABLET PO PRN (21:05)
--- NOTE | 2017-07-16 21:05 | NUR ---
PRN VISTARIL & SEROQUEL Patient reports extreme anxiety stating "I feel like there's an earthquake going on inside of me, I'm scared." Patient is tearful and visibly tremulous. SN instructed patient to utilize deep breathing exercises previously taught to patient. SN encouraged patient to verbalize feelings of anxiety and fears/worries. SN provided PRN Vistaril 25mg PO for anxiety and PRN Seroquel 50mg PO as requested by patient for difficulty sleeping. Patient has 1:1 at bedside for safety. Safety measures in place, side rails up x2, bed locked in low position, call light within reach. Will monitor for effectiveness.
--- NOTE | 2017-07-16 22:05 | NUR ---
PRN VISTARIL & SEROQUEL REASSESSMENT Patient appears calm, respirations are even and unlabored. Patient states "I feel sleepy, I hope I can fall asleep soon." Patient states her anxiety has subsided slightly, reporting "that was definitely a panic attack." PRN Vistaril and Seroquel effective. Safety measures in place, 1:1 at bedside for safety, side rails up x2, bed locked in low position, call light within reach. Will continue to monitor.
--- NOTE | 2017-07-16 22:14 | NUR ---
PRN MOTRIN Patient reports headache 8/10 on pain scale. PRN Motrin 400mg given PO. Safety measures in place, 1:1 at bedside, side rails up x2, bed locked in low position, call light within reach.
--- NOTE | 2017-07-16 23:14 | NUR ---
PRN MOTRIN REASSESSMENT Patient reports improvement in headache pain and appears sleepy. PRN Motrin effective. Safety measures in place, 1:1 at bedside for safety, call light within reach. Will continue to monitor.
--- NOTE | 2017-07-17 | NUR ---
VITALS REFUSED, CIWA DEFERRED Patient refused midnight vital signs and requested not to be woken up for any reason. CIWA deferred at this time due to patient sleeping; to be assessed and scored while patient is awake. Respirations are even and unlabored, 14/min. Safety measures in place, side rails up x2, bed locked in low position, 1:1 at bedside, call light within reach. Will continue to monitor.
--- NOTE | 2017-07-17 04:00 | NUR ---
VITALS REFUSED, CIWA DEFERRED Patient refused 0400 vital signs, earlier requesting that no one disturb her so as to maximize sleep hours before discharge. CIWA deferred at this time due to patient sleeping; to be assessed and scored while patient is awake. Respirations are even and unlabored, 14/min. Safety measures in place, side rails up x2, bed locked in low position, 1:1 at bedside, call light within reach. Will continue to monitor.
--- NOTE | 2017-07-17 07:05 | NUR ---
END OF SHIFT Patient is a 57-year-old female admitted on 07/12/17 for ETOH (tequila) withdrawal. Patient has completed a 4-day Ativan taper, tolerated well. Patient's last CIWA was 13 at 1999 related to "panic attack" patient described to SN. Patient is scheduled for discharge today. Patient received the following PRNs: Vistaril, Seroquel, and Motrin; all noted as effective. Patient slept for 6 hours, total intake of 650mL, void x7, stool x 0. Patient is on fall and seizure precautions with no history of seizure. Patient is currently on 1:1 with sitter in her room for safety related to unsteady gait. Patient can walk short distances with supervision but requires a wheelchair for farther distances. Safety measures in place, side rails up x2, bed locked in low position, call light within reach. Will endorse to day shift.
--- NOTE | 2017-07-17 07:26 | NUR ---
Start of shift Patient 57 y/o female admitted for medically supervised withdrawal of ETOH and Klonopin. Patient alert & oriented to name, place & situation. Presents with depressed mood, flat affect. Denies c/o N/V/D. Pt presents with fine tremors, anxiety and agitation. Pt completed Ativan taper yesterday. Pt for discharge today at 0930. Continues with 1: 1 sitter for safety precautions. Ambulates with unsteady gait. Last CIWA 13. PRN medications given last night Seroquel, Vistaril and Motrin. Patient remained compliant with medication regimen. Pt NKA, FULL CODE. Bed in lowest/locked position, side rails up X2, call light within reach. Will continue to monitor for withdrawal symptoms.
[2017-07-17 08:00] VITALS: BP 108/78
[2017-07-17] MEDS: THIAMINE HCL 100 MG TABLET PO SCH (08:02)
[2017-07-17] MEDS: GABAPENTIN 300 MG CAPSULE PO SCH (08:02)
[2017-07-17] MEDS: MULTIVITAMINS,THERAPEUTIC TABLET PO SCH (08:02)
[2017-07-17] MEDS: IBUPROFEN 400 MG TABLET PO PRN (08:02)
[2017-07-17] MEDS: FOLIC ACID 1 MG TABLET PO SCH (08:02)
[2017-07-17 08:03] VITALS: BP 108/78
[2017-07-17] MEDS: PROPRANOLOL HCL 20 MG TABLET PO SCH (08:03)
--- NOTE | 2017-07-17 08:07 | NUR ---
PRN IBUPROFEN 400 MG PO FOR HEADACHE PAIN #8/.
--- NOTE | 2017-07-17 09:04 | NUR ---
REASSESS IBUPROFEN- PT STATES SHE STILL HAS HEADACHE #7/10 REQUESTS TYLENOL TOO. ADMINISTER TYLENOL 650 MG PO FOR HEADACHE #7/10.
--- NOTE | 2017-07-17 09:53 | NUR ---
REASSESS- TYLENOL EFFECTIVE, PT REPORTS HEADACHE IMPROVED AND NOW #4/10.
--- NOTE | 2017-07-17 11:11 | NUR ---
Discharge note Pt is in stable condition, VS WNL, skin intact, denies any suicidal or homicidal ideations. All discharge paperwork signed and dated. Pt was discharged from [facility] 07/17/2017 at 11:11 AM to [facility]. Pt left building with all her belongings, medications, and prescriptions. notified.
== END 2017-07-17 11:11 | disposition other institution (70) | DRG 895 ==
LOC: SRC 00:28
PROVIDERS: ADMIT Internal Medicine; ATTEND Internal Medicine
PROC: HZ2ZZZZ Detoxification Services for Substance Abuse Treatment (ICD-10-PCS; principal; 2017-07-12)
PROC: HZ31ZZZ Individual Counseling for Substance Abuse Treatment, Behavioral (ICD-10-PCS; 2017-07-14)
DX: F10.232 Alcohol dependence with withdrawal with perceptual disturbance (principal); E87.3 Alkalosis; D69.6 Thrombocytopenia, unspecified; E83.42 Hypomagnesemia; F33.9 Major depressive disorder, recurrent, unspecified; I15.9 Secondary hypertension, unspecified; E86.0 Dehydration; K70.9 Alcoholic liver disease, unspecified; Y90.0 Blood alcohol level of less than 20 mg/100 ml; E87.6 Hypokalemia; F17.210 Nicotine dependence, cigarettes, uncomplicated; Z81.1 Family history of alcohol abuse and dependence; Z79.899 Other long term (current) drug therapy; G47.00 Insomnia, unspecified; E07.81 Sick-euthyroid syndrome; F41.9 Anxiety disorder, unspecified; F13.90 Sedative, hypnotic, or anxiolytic use, unspecified, uncomplicated; R26.81 Unsteadiness on feet
CPT/HCPCS: 36415; 80307; 82746; 83690; 83735; 84100; 84443; 85025; 86592; 86705; 86803; 87340; 87806; A4663; G0480